=== PATIENT | female | born 1985 | race African-American/Black ===

== ENCOUNTER 2025-06-23 14:27 | Emergency (ER) | payer MEDICAID ==
[~2025-06-23] VITALS: Ht 157.5 cm; Wt 140.6 kg
[2025-06-23 15:07] VITALS: BP 126/74; TEMP 98.2
[2025-06-23] MEDS ORDERED: TDAP [DIPH/PERTUSSIS/TET] 0.5 ML VIAL IM ONE (16:40)
[2025-06-23] MEDS: TDAP [DIPH/PERTUSSIS/TET] 0.5 ML VIAL IM ONE (16:44)
[2025-06-23 16:45] VITALS: O2SAT 96
== END 2025-06-23 16:47 | disposition home or self-care (01) ==
LOC: ER 14:37
DX: M79.5 Residual foreign body in soft tissue (principal); M79.671 Pain in right foot; F17.200 Nicotine dependence, unspecified, uncomplicated; W25.XXXA Contact with sharp glass, initial encounter; Y93.89 Activity, other specified; Y92.89 Other specified places as the place of occurrence of the external cause; Y99.8 Other external cause status
CPT/HCPCS: 73630-TC; 90715